=== PATIENT | female | born 1995 | race Caucasian/White ===

== ENCOUNTER 2025-03-29 08:53 | Outpatient (REF) | payer MEDICAID, SELFPAY ==
--- NOTE | ~2025-03-29 | US_ITS ---
EXAMINATION: US PELVIS CLINICAL INFORMATION: Dysfunctional uterine bleeding, IUD placed 02/13/2025 COMPARISON: None available. TECHNIQUE: Ultrasound of the pelvis is performed using both transabdominal and transvaginal transducers along with Doppler. Transvaginal imaging is performed due to inadequate visualization transabdominally. FINDINGS: Uterus: The uterus is anteflexed and measures 9.6 x 3.2 x 3.9 cm. The double wall endometrial thickness is 2 mm. Echogenic IUD is 7 mm caudal to the upper uterine canal apex. The uterus is smooth in contour and has normal myometrial echogenicity. No visible fibroid. Adnexa: Both ovaries are visualized. There is normal color flow to the adnexa. There is no ovarian torsion. There is no pelvic ascites or fluid collection. Right ovary measures 2.6 x 1.2 x 1.8 cm. Left ovary measures 3.0 x 2.0 x 1.8 cm. US/US pelvic and transvaginal IMPRESSION: IUD is 7 mm below the apex of the uterine canal. Electronically signed by: Geovanni Lopez MD 03/29/2025 04:21 PM RAMESH
--- OUTSIDE RECORDS SUMMARY | 2025-03-29 09:36 | XMS_ITS | Encounter Summary ---
Author Organization [facility] Address [address] [place] [address] Phone Care Team Providers Care Oyster Farmer Name Role Phone Hunter Carmichael MD Primary Care Provider Unavailabl e Encounter Details Date Type Department Care Team (Late st Contact Info) Description 11/18/2016 Conversion Encounter [facility] - [address], [address] [place] [address] Hunter Carmichael MD Social History Tobacco Use Types Packs/Day Years Used Date Smoking Tobacco: Never Assessed Comments Unknown Sex and Gender Information Value Date Recorded Sex Assigned at Not on file Legal Sex Female 9:35 AM EST Gender Identity Not on file Sexual Orientation Not on file documented as of this encounter Plan of Treatment Not on file documented as of this encounter Visit Diagnoses Not on filedocumented in this encounter Care Teams Oyster Farmer Relationship Specialty Start Date End Date Hunter Carmichael MD PCP - General 06/02/16 04/04/20 documented as of this encounter
--- OUTSIDE RECORDS SUMMARY | 2025-03-29 09:37 | XMS_ITS | Clinical Summary ---
Author Organization [facility] Address [address] [place] [id number] Phone Care Team Providers Care Manager Acquisition Name Role Phone Unavailable Primary Care Provider Unavailabl e Immunizations Immunization Administration Dates Next Due DTaP 10/01/1998, 6,09/28/1994, 995,03/26/1994 HPV, Quadrivalent 11/26/2008,10/05/2007,10/01/19 07 Hep B, ped/adol 09/28/1994,03/26/1994,03/01/1994 Hib (PRP-T) 04/21/1995, 5,06/04/1994, 994 Influenza 11/26/2008 Influenza, injectable, trivalent 02/17/2010 MMR 10/29/1999,04/21/1995 Meningococcal Conj (Menactra) MCV4P 09/28/2012,0 09/30/2006 OPV 10/01/1998, 5,06/04/1994, 994 Tdap 05/09/2013,09/30/2006 Varicella 09/30/2006,10/01/1998 Social History Tobacco Use Types Packs/Day Years Used Date Smoking Tobacco: Never Assessed Comments Unknown Sex and Gender Information Value Date Recorded Sex Assigned at Not on file Legal Sex Female 9:35 AM EST Gender Identity Not on file Sexual Orientation Not on file Last Filed Vital Signs Vital Sign Reading Time Taken Comments Blood Pressure 118/69 10/31/2013 12:00 AM EDT Pulse 76 10/31/2013 12:00 AM EDT Temperature 36.8 C (98.2 F) 09/28/2012 12:00 AM EDT Respiratory Rate - - Oxygen Saturation - - Inhaled Oxygen Concentration - - Weight 66.4 kg (146 lb 6.4 oz) 10/31/2013 12:00 AM EDT Height 172.1 cm (5' 7.75 ) 10/31/2013 12:00 AM E DT Body Mass Index 22.42 10/31/2013 12:00 AM EDT Plan of Treatment Health Maintenance Due Date Last Done Comments Hepatitis B Vaccines (3 of 3 - 3-dose series) 11/23/1994 09/28/1994, 03/26/1994, 03/01/1994 DTaP,Tdap,and Td Vaccines (8 - Td or Tdap) 05/09/2023 05/09/2013, 09/30/2006, 10/01/1998, Additional history exists Influenza Vaccines (#1) 2024 02/17/2010, 11/26 COVID-19 Vaccine ( season) 2024 HIB Vaccines Completed 04/21/1995, 09/10, 06/04/1994, Additional history exists IPV Vaccines Completed 10/01/1998, 09/10, 06/04/1994, Additional history exists MMR Vaccines Completed 10/29/1999, 04/21/1995 Varicella Vaccines Completed 09/30/2006, 10/01/1998 HPV Vaccines Completed 11/26/2008, 09/11, 09/30/2006 Meningococcal Vaccine Completed 09/28/2012, 007 Hepatitis A Vaccines Aged Out No long er eligible based on patient's age to complete this topic Men B Vaccine Aged Out No longer elig ible based on patient's age to complete this topic Pneumococcal Vaccine Aged Out No long er eligible based on patient's age to complete this topic Procedures * Due to [place] [employer] law, this organization might not be sharing sensitive test results. Procedure Name Priority Date/Time Associated Diagnosis Comments CHLAMYDIA DNA PROBE, DIRECT Routine 08/14/2013 12:00 AM EDT from Last 3 Months or Most Recently Relevant to Health Maintenance Results * Due to [place] [employer] law, this organization might not be sharing sensitive test results. * Chlamydia DNA probe, direct (08/14/2013 12:00 AM EDT) CHLAMYDIA TRACHOMATIS AMPLIFIED RNA Negative CONVERTED LABS Comment: Hillary Cormier 08/11/2013 11:50:01 AM > , Urine sample labeled and sent to [facility] Hunter Carmichael 08/14/2013 03:37:33 PM > Negative Reason: Received -[facility] Lab Order Brand Mgr CHLAMYDIA SOURCE URINE CON VERTED LABS Comment: Hillary Cormier 08/11/2013 11:50:01 AM > , Urine sample labeled and sent to [facility] Hunter Carmichael 08/14/2013 03:37:33 PM > Negative Reason: Received -[facility] Lab Order Brand Mgr Chlamydia trachomatis amplified RNA(Conversion) Negative CONVERTED LABS Comment: Hillary Cormier 08/11/2013 11:50:01 AM > , Urine sample labeled and sent to [facility] Hunter Carmichael 08/14/2013 03:37:33 PM > Negative Reason: Received -[facility] Lab Order Brand Mgr 08/14/2013 Narrative CONVERTED LABS - 08/14/2013 12:00 AM EDT Chlamydia DNA Probe us Hunter Carmichael MD LAB MICROBIOLOGY - GENERAL ORDER SISSY Final Result CONVERTED LABS from Last 3 Months or Most Recently Relevant to Health Maintenance
== END 2025-03-29 08:54 | disposition home or self-care (01) ==
LOC: HO.UMASIMG 08:53
PROVIDERS: Visit Provider Nurse Practitioner Women's Health
DX: Z30.431 Encounter for routine checking of intrauterine contraceptive device (principal); N92.6 Irregular menstruation, unspecified; Z11.3 Encounter for screening for infections with a predominantly sexual mode of transmission
CPT/HCPCS: 76830; 76856

== ENCOUNTER → 2025-03-29 13:04 | Outpatient (BNV) | payer MEDICAID, SELFPAY | PROVIDERS: Visit Provider Radiology Diagnostic Radiology | DX: N93.8 Other specified abnormal uterine and vaginal bleeding (principal); Z97.5 Presence of (intrauterine) contraceptive device | CPT/HCPCS: 76830; 76856 ==